=== PATIENT | female | born 1960 | race Caucasian/White ===

== ENCOUNTER → 2017-08-02 | Day surgery (SDC) | payer BC ==
--- NOTE | 2017-08-02 11:21 | OP ---
DATE OF OPERATION: 08/01/2017 PREOPERATIVE DIAGNOSIS: Left breast mass, 4 o'clock, 3 cm from the nipple. POSTOPERATIVE DIAGNOSIS: Left breast mass, 4 o'clock, 3 cm from the nipple. PROCEDURE: Left ultrasound-guided core biopsy with clip placement. ANESTHESIA: Local. ATTENDING SURGEON: Abisai Mcmahan MD ESTIMATED BLOOD LOSS: Minimal. COMPLICATIONS: None. DESCRIPTION OF PROCEDURE: Patient was made aware of the risks and benefits of the procedure and consented. She was placed in the supine position. Under sterile conditions with 1% Lidocaine for local anesthesia, small janette was made in the skin. Using a 13-guage suction biopsy device via a lateral approach under ultrasound guidance, six cores were obtained and submitted to Pathology. Likewise, under ultrasound guidance, a bowtie clip was placed into the biopsy region. Well tolerated by patient. Steri-Strip and sterile bandage were applied. The patient went for post-procedure mammogram. Will contact her with the results. Naman [id number]
--- NOTE | 2017-08-03 15:44 | PATH ---
Surgical Pathology Report Patient Name: CAMI KISER [facility]. Rec. #: [id number] /Age/Gender: 1960 (Age: 57) / F Account: [id number] Location: REPLACED BY [facility] Taken: 08/02/2017 Received: 08/02/2017 Reported: 08/03/2017 Physicians: Abisai Mcmahan M.D. Specimen(s) Received LEFT BREAST CORE BIOPSY 4:00, 3CM FN Clinical History Nonpalpable lesion Ultrasound findings: Suspicious Final Diagnosis LEFT BREAST CORE BIOPSY 4:00, 3CM FN: DUCTAL CARCINOMA IN SITU (DCIS), PAPILLARY AND CRIBRIFORM TYPE, LOW NUCLEAR GRADE PRESENT IN ASSOCIATION WITH/INVOLVING INTRADUCTAL PAPILLOMA. Comment: Case reviewed in intradepartmental consultation with consensus on diagnosis. Results of ER and UT studies performed at [facility] are as follows: ER (clone [id number] mouse monoclonal antibody by [employer]): >90 % nuclear staining with strong intensity (Positive). UT (clone16 mouse monoclonal antibody by [employer]) :>90 % nuclear staining with strong intensity (Positive). Positive and negative controls (internal if applicable) show appropriate results. Formalin fixation and cold ischemic times are within current ASCO/CAP recommendations for ER, UT and Her2 testing. Electronically Signed Mony Vásquez M.D. Gross Description Received in formalin labeled "left breast biopsy 4:00, 3 cmfn," is a 2.0 x 1.2 x 0.3 cm aggregate of multiple vilchis-yellow, irregular to cylindrical portions of fibroadipose tissue. The formalin is filtered and the specimen is entirely submitted in one cassette. Time to formalin fixation< 1 minute Total formalin fixation time: Approximately 9 hours. DL/08/02/2017 saudi/08/02/2017
== END | disposition home or self-care (01) ==
LOC: FRADUS-SUR 08:38
PROVIDERS: ATTEND Surgery Surgical Oncology
PROC: 0HBU3ZX Excision of Left Breast, Percutaneous Approach, Diagnostic (ICD-10-PCS; principal; 2017-08-02)
DX: D05.12 Intraductal carcinoma in situ of left breast (principal); N63 Unspecified lump in breast; D24.2 Benign neoplasm of left breast
CPT/HCPCS: 19083; 87899; 88305-TC; 88342-TC; A4648; G0206-TC

== ENCOUNTER 2017-11-01 07:00 | Day surgery (SDC) | payer BC ==
--- NOTE | 2017-10-26 10:33 | HP ---
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 Recent S/P left breast wide excision for low grade DCIS with positve superior and medial margins. 10/18/2017. Needs re excision. History Source: Patient - Past Medical History Heme/Onc: Yes: Cancer (right breast cancer 2007) Additional Past Medical History: Bilateral breast cancer DCIS right 2007/left current - Past Surgical History Past Surgical History: Yes: Breast Biopsy (right breast bx 1994-benign right WE 11/2007-DCIS), Mastectomy (right mastectomy with snbx and KELLY 2007) - Smoking History Smoking history: Never smoked - Alcohol/Substance Use Hx Alcohol Use: No Home Medications - Allergies Allergies/Adverse Reactions: Allergies Allergy/AdvReac Type Severity Reaction Status Date / Time No Known Allergies Allergy Verified 10/18/17 08:19 - Home Medications Home Medications: Ambulatory Orders Oxycodone HCl/Acetaminophen [Percocet 5-325 mg Tablet -] 1 - 2 tab PO Q6H #20 tablet MDD 6 10/18/17 Family Disease History - Family Disease History Family History: Denies Physical Examination Constitutional: Yes: Well Nourished Breast(s): Yes: Other (right KELLY no recurrence left incision healing well no infection.) Problem List - Problems (1) Ductal carcinoma in situ (DCIS) of left breast Code(s): D05.12 - INTRADUCTAL CARCINOMA IN SITU OF LEFT BREAST Assessment/Plan Left breast re excision for positive superior and medial margins S/P left breast wide excision 10/18/2017
[2017-10-27 12:01] VITALS: BMI 22.3
[2017-11-01] MEDS ORDERED: LIDOCAINE HCL 1%, 10 MG/ML (20ML VIAL) ONE (07:27)
[2017-11-01] MEDS ORDERED: BUPIVACAINE HCL/PF 2.5 MG/ML - 30 ML VIAL IJ ONE (07:27)
[2017-11-01] MEDS ORDERED: MIDAZOLAM HCL 2 MG/2 ML SINGLE DOSE VIAL ONE (08:13)
[2017-11-01] MEDS ORDERED: KETOROLAC TROMETHAMINE 30 MG/1 ML VIAL IVPUSH PRN (08:46)
[2017-11-01] MEDS ORDERED: ONDANSETRON 4 MG/2 ML VIAL IVPUSH PRN (08:46)
[2017-11-01] MEDS ORDERED: LIDOCAINE HCL 2% 100 MG/5 ML DISP.SYRIN ONE (08:53)
[2017-11-01] MEDS ORDERED: PROPOFOL 20 ML ONE ×3 (08:54→09:49)
[2017-11-01] MEDS ORDERED: ceFAZolin SODIUM 1 GM VIAL ONE ×2 (08:58→11:06)
[2017-11-01] MEDS ORDERED: DEXTROSE 5%-0.45% SALINE 1,000 ML IV SCH (09:00)
[2017-11-01] MEDS ORDERED: DEXAMETHASONE SOD PHOSPHATE 4 MG/1 ML VIAL ONE ×2 (09:00→11:07)
[2017-11-01] MEDS ORDERED: LIDOCAINE HCL 1%, 10 MG/ML (50 mL VIAL) IJ ONE (09:07)
[2017-11-01] MEDS ORDERED: BUPIVACAINE HCL/PF 0.25% (2.5MG/ML) 10 ML VIAL IJ ONE (09:07)
--- NOTE | 2017-11-01 10:50 | OP ---
DATE OF OPERATION: 11/01/2017 PREOPERATIVE DIAGNOSIS: Left breast cancer with positive superior and medial margins. POSTOPERATIVE DIAGNOSIS: Left breast cancer with positive superior and medial margins. PROCEDURE: Left breast wide excision with complex tissue transfer. ANESTHESIA: General intubated. ATTENDING SURGEON: Kunal Mcmahan MD BULLDOGGER: NAT Ann ESTIMATED BLOOD LOSS: Minimal. COMPLICATIONS: None. DESCRIPTION OF PROCEDURE: Patient was made aware of the risks and benefits of the procedure and consented. She was placed in supine position. After general anesthesia was induced, the patient was intubated. The operative site was prepped and draped in the usual sterile fashion. The prior incision was opened up, and the prior complex closure was taken down. The superior segment was then widely excised sharply and submitted with a suture at the new margin. This was done the same for the medial segment with again another suture at the new medial margin. The wound was copiously irrigated with normal saline. Hemostasis maintained by electrocautery. Thick tissue flaps were then made again medially and superiorly, and the tissue was rotated into the defect and closed with multiple layers of 2-0 Vicryl. The skin was then closed with interrupted 3-0 Vicryl, followed by a running subcuticular 4-0 Monocryl. The tissues were then infiltrated with a 1:1 solution of 1% lidocaine with 0.25% bupivacaine without epinephrine. Skin was closed with running subcuticular 4-0 Monocryl. Steri-Strips and a sterile dressing as well as a compression bra were then applied, and the patient, having tolerated the procedure well, was transferred to the recovery room in excellent condition. KUNAL MCMAHAN M.D. [id number]
[2017-11-01] MEDS ORDERED: ROCURONIUM BROMIDE 50 MG/5 ML VIAL ONE ×5 (10:59→13:17)
[2017-11-01] MEDS ORDERED: ONDANSETRON 4 MG/2 ML VIAL ONE (11:07)
[2017-11-01] MEDS ORDERED: PHENYLEPHRINE HCL 10 MG/1 ML SINGLE DOSE VIAL ONE (11:09)
[2017-11-01] MEDS ORDERED: LACTATED RINGERS SOLUTION 1,000 ML IV SCH (11:15)
[2017-11-01] MEDS ORDERED: ACETAMINOPHEN 325 MG TABLET (FP) PO SCH (11:30)
[2017-11-01] MEDS ORDERED: HYDROmorphone HCL/PF 1 MG/ML VIAL (FOR PYXIS CHARGING ONLY) ONE (11:33)
[2017-11-01 11:34] VITALS: BP 127/78; PULSE 66; TEMP 98
--- NOTE | 2017-11-03 16:55 | PATH ---
Surgical Pathology Report Patient Name: CAMI KISER Med. Rec. #: [id number] /Age/Gender: 1960 (Age: 57) / F Account: [id number] Location: [facility] Taken: 11/01/2017 Received: 11/01/2017 Reported: 11/03/2017 Physicians: Abisai Mcmahna M.D. Specimen(s) Received A: LEFT BREAST SUPERIOR SEGMENT B: LEFT BREAST MEDIAL SEGMENT Clinical History DCIS Final Diagnosis A. BREAST, LEFT, SUPERIOR SEGMENT, EXCISION: BREAST PARENCHYMA WITH ATYPICAL DUCTAL HYPERPLASIA ARISING IN A BACKGROUND OF PROLIFERATIVE FIBROCYSTIC CHANGES INCLUDING STROMAL FIBROSIS, MICROCYSTS, COLUMNAR CELL CHANGES, AND MICROCALCIFICATIONS WITHIN BENIGN DUCTS. CHANGES OF PRIOR PROCEDURE NOTED. B. BREAST, LEFT, MEDIAL SEGMENT, EXCISION: BREAST PARENCHYMA WITH ATYPICAL DUCTAL HYPERPLASIA AND SMALL PAPILLOMA ARISING IN A BACKGROUND OF PROLIFERATIVE FIBROCYSTIC CHANGES INCLUDING STROMAL FIBROSIS, MICROCYSTS, APOCRINE METAPLASIA AND MICROCALCIFICATIONS WITHIN BENIGN DUCTS. CHANGES OF PRIOR PROCEDURE NOTED. Electronically Signed Sendy Gusman M.D. Gross Description A. Received in formalin labeled "left breast superior segment," is a 4.5 x 3.5 x 1.8 cm irregular portion of fibroadipose tissue with a suture marking the new margin, per the surgeon. The new margin is inked blue and the specimen is serially sectioned. The specimen is entirely and sequentially submitted in 7 cassettes. B. Received in formalin labeled "left breast medial segment," is a 4.0 x 3.4 x 1.5 cm irregular portion of fibroadipose tissue with a suture marking the new margin, per the surgeon. The new margin is inked blue and the specimen is serially sectioned. The specimen is entirely and sequentially submitted in 8 cassettes. Time to formalin fixation: Approximately 2 minutes Total formalin fixation time: Approximately 33 hours. 11/02/201711/02/2017
--- NOTE | 2017-11-09 11:23 | OP ---
DATE OF OPERATION: 11/01/2017 PREOPERATIVE DIAGNOSIS: Left breast cancer, ductal carcinoma in situ, with positive margins. POSTOPERATIVE DIAGNOSIS: Left breast cancer, ductal carcinoma in situ, with positive margins. PROCEDURE: Left breast re-excision x2. ANESTHESIA: General intubated. ATTENDING SURGEON: Abisai Mcmahan MD ESTIMATED BLOOD LOSS: Minimal. COMPLICATIONS: None. DESCRIPTION OF PROCEDURE: Patient was made aware of the risks and benefits of the procedure, consented. She was placed in the supine position. After general anesthesia was induced, the patient was intubated. The operative site was prepped and draped in the usual sterile fashion. The prior incision was opened up as well as taking down all the reconstructive incisions. Using the superior wall of the prior excision, which was grasped and sharply excised, and a clip was placed in the new superior segment. The medial segment was then retracted and sharply excised with a clip placed at the new medial margin. The wound was copiously irrigated with normal saline. Hemostasis was maintained by electrocautery. The breast was easily then reconstructed with 2-0 Vicryl followed by deep 3-0 Vicryl followed by running subcuticular 4-0 Monocryl. Steri-Strips and sterile bandages were applied, and the patient, having tolerated the procedure well, was transferred to the recovery room in excellent condition. ABISAI MCMAHAN M.D. [id number]
== END 2017-11-01 12:00 | disposition home or self-care (01) ==
LOC: FASU 07:00
PROVIDERS: ATTEND Surgery Surgical Oncology
PROC: 0JX60ZZ Transfer Chest Subcutaneous Tissue and Fascia, Open Approach (ICD-10-PCS; 2017-11-01)
PROC: 0HBU0ZZ Excision of Left Breast, Open Approach (ICD-10-PCS; principal; 2017-11-01 08:46)
DX: D05.12 Intraductal carcinoma in situ of left breast (principal); D24.2 Benign neoplasm of left breast; N60.32 Fibrosclerosis of left breast
CPT/HCPCS: 84703; 88307-TC; 94760